=== PATIENT | female | born 1985 | race Hispanic/Latino ===

== ENCOUNTER 2017-03-19 08:00 | Emergency (ER) | payer MEDICAID, OTHER ==
[~2017-03-19 08:00] MED LIST: AMOX-429 PO; LORA2TAB80 PO; METF500T6 PO; PROMETHAZINE; TRAM50TA4 PO
[2017-03-19 08:33] LABS: BASOPHILS % (AUTO) 0.5 % (0.0-5.0); HEMATOCRIT 37.2 % (36-48); LYMPHOCYTES % (AUTO) 23.2 % (21.0-51.0); MEAN CORPUSCULAR HEMOGLOBIN 28.4 pg (27.0-33.0); MEAN CORPUSCULAR HGB CONC 33.4 g/dL (32.0-36.0); MEAN CORPUSCULAR VOLUME 85.2 fL (79-99); MONOCYTES % (AUTO) 5.2 % (3.0-13.0); NEUTROPHILS % (AUTO) 68.1 % (40.0-77.0); PLATELET COUNT (AUTO) 405 K/uL (130-400); RED BLOOD CELL COUNT(AUTO) 4.37 MIL/uL (4.00-5.50); RED CELL DISTRIBUTION WIDTH 13.1 % (11.0-15.5); WHITE BLOOD COUNT (AUTO) 13.7 K/uL (4.8-10.8)
[2017-03-19] MEDS ORDERED: KETOROLAC TROMETHAMINE 30MG/ML ONE (08:44)
[2017-03-19] MEDS ORDERED: ONDANSETRON HCL 4 MG/2 ML VIAL ONE (08:44)
[2017-03-19] MEDS ORDERED: SODIUM CHLORIDE 0.9% 1000ML 1,000 ML IV ONE (08:44)
[2017-03-19 08:49] LABS: APPEARANCE,URINE Turbid (CLEAR); BILIRUBIN,URINE Negative (NEGATIVE); COLOR,URINE Yellow (YELLOW); GLUCOSE, URINE (UA) Negative (NEGATIVE); KETONES,URINE Negative (NEGATIVE); LEUKOCYTE ESTERASE ,URINE Negative (NEGATIVE); NITRATE,URINE Negative (NEGATIVE); OCCULT BLOOD,URINE Negative (NEGATIVE); PH,URINE 5.5 (5.0-8.0); PROTEIN,URINE Negative (NEGATIVE); UROBILINOGEN,URINE 0.2 mg/dL (0.2-1.0)
[2017-03-19 08:51] LABS: HCG,QUAL RESULT NEGATIVE (NEGATIVE)
[2017-03-19 08:55] LABS: BACTERIA,URINE Rare /HPF (None Seen); RBC,URINE 0-1 /HPF (0-1); SQUAMOUS EPITHELIAL CELL,UR Few /LPF (0-2); WBC,URINE 0-1 /HPF (0-1)
[2017-03-19 09:16] LABS: CARBON DIOXIDE 27 mmol/L (21-32); CHLORIDE 100 mmol/L (101-111); CREATININE 0.5 mg/dL (0.5-1.5); GLOMERULAR FILTR. RATE CALC 152 mL/min (>60); GLUCOSE,RANDOM 186 mg/dL (70-105); POTASSIUM 4.2 mmol/L (3.5-5.1); SODIUM SERUM 135 mmol/L (136-145); UREA NITROGEN, BLOOD 10 mg/dL (7-18)
[2017-03-19] MEDS ORDERED: DICYCLOMINE HCL 10 MG/ML 2ML AMP IM ONE (09:17)
[2017-03-19 09:21] LABS: ALANINE AMINOTRANSFERASE 22 U/L (12-78); ALBUMIN 3.3 g/dL (3.5-5.0); ASPARTATE AMINOTRANSFERASE 14 U/L (10-37); BILIRUBIN,DIRECT < 0.1 mg/dL (0.0-0.3); BILIRUBIN,TOTAL 0.2 mg/dL (0.2-1.0); LIPASE 110 U/L (114-286); TOTAL PROTEIN, SERUM 7.3 g/dL (6.0-8.3)
[2017-03-19] MEDS ORDERED: IOPAMIDOL-370 75 ML VIAL IV ONE (09:27)
[2017-03-19] MEDS ORDERED: PROMETHAZINE HCL 25 MG/ML 1ML AMPULE IM ONE (10:48)
== END 2017-03-19 11:33 | disposition home or self-care (01) ==
LOC: EDH 08:00
DX: K52.9 Noninfective gastroenteritis and colitis, unspecified (principal); K21.9 Gastro-esophageal reflux disease without esophagitis
CPT/HCPCS: 36415; 74177; 80048; 80076; 81001; 81025; 83690; 85025; 96361; 96372; 96374; 96375; 99285; J0500; J1885; J2405; J2550; J7030; Q9967

== ENCOUNTER 2017-05-19 14:32 | Emergency (ER) | payer OTHER ==
[2017-05-19 15:18] LABS: BASOPHILS % (AUTO) 0.8 % (0.0-5.0); EOSINOPHILS % (AUTO) 0.3 % (0.0-8.0); HEMATOCRIT 40.5 % (36-48); LYMPHOCYTES % (AUTO) 16.3 % (21.0-51.0); MEAN CORPUSCULAR HEMOGLOBIN 28.5 pg (27.0-33.0); MEAN CORPUSCULAR HGB CONC 33.5 g/dL (32.0-36.0); MEAN CORPUSCULAR VOLUME 85.1 fL (79-99); MONOCYTES % (AUTO) 4.1 % (3.0-13.0); NEUTROPHILS % (AUTO) 78.5 % (40.0-77.0); PLATELET COUNT (AUTO) 467 K/uL (130-400); RED BLOOD CELL COUNT(AUTO) 4.77 MIL/uL (4.00-5.50); RED CELL DISTRIBUTION WIDTH 13.1 % (11.0-15.5); WHITE BLOOD COUNT (AUTO) 13.1 K/uL (4.8-10.8)
[2017-05-19 15:19] LABS: APPEARANCE,URINE Clear (CLEAR); BILIRUBIN,URINE Negative (NEGATIVE); COLOR,URINE Yellow (YELLOW); GLUCOSE, URINE (UA) >=1000 mg/dL (NEGATIVE); KETONES,URINE >=80 mg/dL (NEGATIVE); LEUKOCYTE ESTERASE ,URINE Negative (NEGATIVE); NITRATE,URINE Positive (NEGATIVE); OCCULT BLOOD,URINE Moderate (NEGATIVE); PH,URINE 5.5 (5.0-8.0); PROTEIN,URINE POS 1+ (NEGATIVE); UROBILINOGEN,URINE 0.2 mg/dL (0.2-1.0)
[2017-05-19 15:36] LABS: HCG,QUAL RESULT NEGATIVE (NEGATIVE)
[2017-05-19 15:44] LABS: CREATININE 0.5 mg/dL (0.5-1.5)
[2017-05-19 15:49] LABS: ALBUMIN 3.7 g/dL (3.5-5.0); BILIRUBIN,TOTAL 0.4 mg/dL (0.2-1.0); TOTAL PROTEIN, SERUM 8.4 g/dL (6.0-8.3)
[2017-05-19 15:51] LABS: BACTERIA,URINE Moderate /HPF (None Seen); SQUAMOUS EPITHELIAL CELL,UR Few /HPF (0-2)
[2017-05-19 15:52] LABS: MUCUS,URINE Rare LPF (None Seen)
[2017-05-19 16:09] LABS: AMPHET/METH SCREEN,URINE NEGATIVE (NEGATIVE); BARBITURATE SCREEN, URINE NEGATIVE (NEGATIVE); BENZODIAZEPINES SCREEN,URINE NEGATIVE (NEGATIVE); CANNABINOID SCREEN,URINE NEGATIVE (NEGATIVE); COCAINE SCREEN,URINE NEGATIVE (NEGATIVE); OPIATE SCREEN,URINE POSITIVE (NEGATIVE); PHENCYCLIDINE SCREEN,URINE NEGATIVE (NEGATIVE)
[2017-05-19] MEDS ORDERED: DiphenhydrAMINE HCL 50 MG/ML VIAL ONE (16:19)
[2017-05-19] MEDS ORDERED: KETOROLAC TROMETHAMINE 30MG/ML ONE (16:19)
[2017-05-19] MEDS ORDERED: SODIUM CHLORIDE 0.9% 1000ML 1,000 ML IV ONE (16:19)
[2017-05-19] MEDS ORDERED: ORPHENADRINE CITRATE 30 MG/ML ML ONE (16:19)
[2017-05-19] MEDS ORDERED: LORAZEPAM 2 MG/ML 1 ML VIAL ONE (17:06)
== END 2017-05-19 18:37 | disposition home or self-care (01) ==
LOC: EDH 14:32
DX: R51 Headache (principal); R25.3 Fasciculation; R11.2 Nausea with vomiting, unspecified; K21.9 Gastro-esophageal reflux disease without esophagitis; F41.9 Anxiety disorder, unspecified; Z90.49 Acquired absence of other specified parts of digestive tract; Z98.890 Other specified postprocedural states
CPT/HCPCS: 36415; 80053; 80305; 81001; 81025; 85025; 96361; 96374; 96375; 99285; J1200; J1885; J2060; J2360; J7030

== ENCOUNTER 2017-11-27 18:47 | Emergency (ER) | payer BC, OTHER ==
[~2017-11-27 18:47] MED LIST changes: +METF-444 PO; -METF500T6 PO
[2017-11-27 19:16] LABS: BILIRUBIN,URINE Negative (NEGATIVE); COLOR,URINE Yellow (YELLOW); GLUCOSE, URINE (UA) 500 mg/dL (NEGATIVE); KETONES,URINE >=80 mg/dL (NEGATIVE); LEUKOCYTE ESTERASE ,URINE Negative (NEGATIVE); NITRATE,URINE Negative (NEGATIVE); OCCULT BLOOD,URINE Trace (NEGATIVE); PROTEIN,URINE POS 2+ (NEGATIVE)
[2017-11-27 19:19] LABS: APPEARANCE,URINE SLIGHTLY CLOUDY (CLEAR)
[2017-11-27 19:20] LABS: HCG,QUAL RESULT NEGATIVE (NEGATIVE)
[2017-11-27 19:22] LABS: BASOPHILS % (AUTO) 0.8 % (0.0-5.0); EOSINOPHILS % (AUTO) 0.3 % (0.0-8.0); HEMATOCRIT 41.2 % (36-48); LYMPHOCYTES % (AUTO) 19.8 % (21.0-51.0); MEAN CORPUSCULAR HEMOGLOBIN 29.3 pg (27.0-33.0); MEAN CORPUSCULAR HGB CONC 34.2 g/dL (32.0-36.0); MEAN CORPUSCULAR VOLUME 85.7 fL (79-99); NEUTROPHILS % (AUTO) 75.1 % (40.0-77.0); PLATELET COUNT (AUTO) 455 K/uL (130-400); RED BLOOD CELL COUNT(AUTO) 4.81 MIL/uL (4.00-5.50); WHITE BLOOD COUNT (AUTO) 17.4 K/uL (4.8-10.8)
[2017-11-27 19:31] LABS: BACTERIA,URINE Few /HPF (None Seen); MUCUS,URINE Moderate LPF (None Seen); SQUAMOUS EPITHELIAL CELL,UR Few /HPF (0-2); WBC,URINE 0-1 /HPF (0-1)
[2017-11-27 19:34] LABS: CREATININE 0.5 mg/dL (0.5-1.5); POTASSIUM 3.7 mmol/L (3.5-5.1)
[2017-11-27 19:39] LABS: ALBUMIN 3.7 g/dL (3.5-5.0); BILIRUBIN,TOTAL 0.4 mg/dL (0.2-1.0); TOTAL PROTEIN, SERUM 8.4 g/dL (6.0-8.3)
[2017-11-27] MEDS ORDERED: ONDANSETRON HCL 4 MG/2 ML VIAL ONE (20:04)
[2017-11-27] MEDS ORDERED: SODIUM CHLORIDE 0.9% 1000ML 1,000 ML IV ONE ×2 (20:04→21:50)
[2017-11-27] MEDS ORDERED: DICYCLOMINE HCL 10 MG/ML 2ML AMP IM ONE (20:52)
[2017-11-27] MEDS ORDERED: PROMETHAZINE HCL 25 MG/ML 1ML AMPULE IM ONE (21:44)
[2017-11-27] MEDS ORDERED: MORPHINE SULFATE 4 MG/1ML SYG ONE (21:44)
[2017-11-28] MEDS ORDERED: DICYCLOMINE HCL 10 MG/ML 2ML AMP IM ONE (00:59)
[2017-11-28] MEDS ORDERED: MORPHINE SULFATE 4 MG/1ML SYG ONE (00:59)
[2017-11-28] MEDS ORDERED: AMOXICILLIN/POTASSIUM CLAV 875-125 TABLET PO ONE (01:07)
== END 2017-11-28 01:38 | disposition home or self-care (01) ==
LOC: EDH 18:47
DX: K57.92 Diverticulitis of intestine, part unspecified, without perforation or abscess without bleeding (principal); R11.10 Vomiting, unspecified; E11.9 Type 2 diabetes mellitus without complications; K21.9 Gastro-esophageal reflux disease without esophagitis; K58.9 Irritable bowel syndrome, unspecified; Z90.49 Acquired absence of other specified parts of digestive tract; Z98.890 Other specified postprocedural states
CPT/HCPCS: 36415; 80053; 81001; 81025; 83690; 85025; 93005; 96361; 96372 ×3; 96374; 96375; 96376; 99285; J0500 ×2; J2270 ×2; J2405; J2550; J7030 ×2

== ENCOUNTER 2018-04-19 21:04 | Emergency (ER) | payer BC ==
[2018-04-19 22:13] LABS: APPEARANCE,URINE Cloudy (CLEAR); BILIRUBIN,URINE Negative (NEGATIVE); COLOR,URINE Yellow (YELLOW); GLUCOSE, URINE (UA) Negative (NEGATIVE); KETONES,URINE Negative (NEGATIVE); LEUKOCYTE ESTERASE ,URINE Negative (NEGATIVE); NITRATE,URINE Negative (NEGATIVE); OCCULT BLOOD,URINE Negative (NEGATIVE); PROTEIN,URINE Negative (NEGATIVE); UROBILINOGEN,URINE 0.2 mg/dL (0.2-1.0)
[2018-04-19 22:31] LABS: HCG,QUAL RESULT NEGATIVE (NEGATIVE)
[2018-04-19 22:38] LABS: BACTERIA,URINE Few /HPF (None Seen); RBC,URINE None Seen /HPF (0-1); SQUAMOUS EPITHELIAL CELL,UR Many /HPF (0-2); WBC,URINE None Seen /HPF (0-1)
[2018-04-19] MEDS ORDERED: METOCLOPRAMIDE 10 MG/2 ML VIAL ONE (22:44)
[2018-04-19] MEDS ORDERED: SODIUM CHLORIDE 0.9% 1000ML 2,000 ML IV ONE (22:44)
[2018-04-19] MEDS ORDERED: KETOROLAC TROMETHAMINE 30MG/ML ONE (22:44)
[2018-04-19] MEDS ORDERED: ONDANSETRON HCL 4 MG/2 ML VIAL ONE (22:44)
[2018-04-19 22:48] LABS: BASOPHILS % (AUTO) 0.7 % (0.0-5.0); EOSINOPHILS % (AUTO) 0.9 % (0.0-8.0); HEMATOCRIT 38.7 % (36-48); LYMPHOCYTES % (AUTO) 12.3 % (21.0-51.0); MEAN CORPUSCULAR HEMOGLOBIN 28.1 pg (27.0-33.0); MEAN CORPUSCULAR HGB CONC 32.8 g/dL (32.0-36.0); MEAN CORPUSCULAR VOLUME 85.7 fL (79-99); MONOCYTES % (AUTO) 5.3 % (3.0-13.0); NEUTROPHILS % (AUTO) 80.8 % (40.0-77.0); PLATELET COUNT (AUTO) 402 K/uL (130-400); RED BLOOD CELL COUNT(AUTO) 4.52 MIL/uL (4.00-5.50); RED CELL DISTRIBUTION WIDTH 12.9 % (11.0-15.5); WHITE BLOOD COUNT (AUTO) 14.3 K/uL (4.8-10.8)
[2018-04-19 22:56] LABS: CREATININE 0.6 mg/dL (0.5-1.5); POTASSIUM 4.8 mmol/L (3.5-5.1)
[2018-04-19 23:01] LABS: ALBUMIN 3.5 g/dL (3.5-5.0); BILIRUBIN,TOTAL 0.3 mg/dL (0.2-1.0); TOTAL PROTEIN, SERUM 7.6 g/dL (6.0-8.3)
[2018-04-19] MEDS ORDERED: DiphenhydrAMINE HCL 50 MG/ML VIAL ONE (23:09)
[2018-04-20 00:32] LABS: BASOPHILS % (AUTO) 0.3 % (0.0-5.0); HEMATOCRIT 34.6 % (36-48); LYMPHOCYTES % (AUTO) 15.3 % (21.0-51.0); MEAN CORPUSCULAR HEMOGLOBIN 28.2 pg (27.0-33.0); MEAN CORPUSCULAR HGB CONC 32.8 g/dL (32.0-36.0); MEAN CORPUSCULAR VOLUME 85.9 fL (79-99); NEUTROPHILS % (AUTO) 77.4 % (40.0-77.0); PLATELET COUNT (AUTO) 379 K/uL (130-400); RED BLOOD CELL COUNT(AUTO) 4.02 MIL/uL (4.00-5.50); RED CELL DISTRIBUTION WIDTH 13.2 % (11.0-15.5)
== END 2018-04-20 01:16 | disposition home or self-care (01) ==
LOC: EDH 21:04
DX: M86.9 Osteomyelitis, unspecified (principal); M54.5 Low back pain; E11.9 Type 2 diabetes mellitus without complications; K21.9 Gastro-esophageal reflux disease without esophagitis; Z90.49 Acquired absence of other specified parts of digestive tract; Z98.890 Other specified postprocedural states
CPT/HCPCS: 36415 ×2; 80053; 81001; 81025; 83690; 85025 ×2; 96361; 96374; 96375; 99285; J1200; J1885; J2405; J2765; J7030

== ENCOUNTER 2019-02-21 21:47 | Emergency (ER) | payer BC ==
[2019-02-21] MEDS ORDERED: LIDOCAINE 5% TOPICAL PATCH TP ONE (22:34)
[2019-02-21] MEDS ORDERED: KETOROLAC TROMETHAMINE 60 MG/2 ML VIAL ONE (22:34)
== END 2019-02-21 23:34 | disposition home or self-care (01) ==
LOC: EDH 21:47
DX: G57.11 Meralgia paresthetica, right lower limb (principal); K21.9 Gastro-esophageal reflux disease without esophagitis; E11.9 Type 2 diabetes mellitus without complications; Z90.49 Acquired absence of other specified parts of digestive tract; Z98.890 Other specified postprocedural states
CPT/HCPCS: 93971; 96372; 99284; J1885

== ENCOUNTER 2024-02-28 01:00 | Emergency (ER) | payer BC ==
[~2024-02-28] VITALS: Ht 157.5 cm; Wt 77.6 kg
[2024-02-28 01:01] VITALS: TEMP 97.7
[2024-02-28] MEDS: LACTATED RINGERS 1000ML 1,000 ML IV ONE (01:25)
[2024-02-28] MEDS: morPHINE 4 MG SYG IVP ONE ×2 (01:27→02:13)
[2024-02-28] MEDS: ondanSETRON 4MG INJ IVP ONE (01:27)
[2024-02-28] MEDS: PANTOPrazole 40 MG/VIAL IVP ONE (01:28)
[2024-02-28 01:49] LABS: BASOPHILS # (AUTO) 0.04 K/uL (0.00-0.20); BASOPHILS % (AUTO) 0.4 % (0.0-5.0); EOSINOPHILS # (AUTO) 0.11 K/uL (0.00-0.70); EOSINOPHILS % (AUTO) 1.1 % (0.0-8.0); HEMATOCRIT 30.6 % (36-48); IMMATURE GRANULOCYTE ABSOLUTE 0.03 K/uL (0-1); LYMPHOCYTES # (AUTO) 3.6 K/uL (1.0-4.8); MEAN CORPUSCULAR HEMOGLOBIN 28.5 pg (27.0-33.0); MEAN CORPUSCULAR HGB CONC 33.7 g/dL (32.0-36.0); MEAN CORPUSCULAR VOLUME 84.8 fL (79-99); MONOCYTES # (AUTO) 0.7 K/uL (0.1-1.0); MONOCYTES % (AUTO) 6.9 % (3.0-13.0); NEUTROPHILS # (AUTO) 5.2 K/uL (1.8-7.7); NEUTROPHILS % (AUTO) 54.3 % (40.0-77.0); PLATELET COUNT (AUTO) 330 K/uL (130-400); RED BLOOD CELL COUNT(AUTO) 3.61 MIL/uL (4.00-5.50); RED CELL DISTRIBUTION WIDTH 13.5 % (11.0-15.5); WHITE BLOOD COUNT (AUTO) 9.6 K/uL (4.8-10.8)
[2024-02-28 01:51] LABS: APPEARANCE,URINE CLEAR (CLEAR); BILIRUBIN,URINE NEGATIVE (NEGATIVE); COLOR,URINE COLORLESS (YELLOW); GLUCOSE, URINE (UA) NEGATIVE (NEGATIVE); KETONES,URINE NEGATIVE (NEGATIVE); LEUKOCYTE ESTERASE ,URINE NEGATIVE Leu/uL (NEGATIVE); NITRATE,URINE NEGATIVE (NEGATIVE); OCCULT BLOOD,URINE NEGATIVE (NEGATIVE); PROTEIN,URINE NEGATIVE (NEGATIVE); UROBILINOGEN,URINE 0.2 mg/dL (0.2-1.0)
[2024-02-28 01:53] LABS: ADD UA MICROSCOPIC NO
[2024-02-28 01:54] LABS: HCG,QUALITATIVE URINE NEGATIVE (NEGATIVE)
[2024-02-28 01:55] LABS: CREATININE 0.5 mg/dL (0.5-1.0); POTASSIUM 3.9 mmol/L (3.5-5.1)
[2024-02-28 01:59] LABS: ALBUMIN 3.2 g/dL (3.5-5.0); BILIRUBIN,TOTAL 0.2 mg/dL (0.2-1.0); TOTAL PROTEIN, SERUM 6.5 g/dL (6.0-8.3)
[2024-02-28] MEDS ORDERED: IOHEXOL-350 75 ML VIAL IV ONE (02:23)
--- NOTE | 2024-02-28 03:46 | ERN ---
ED Note History of Present Illness Stated Complaint: C/O ABD PAIN WITH NAUSEA, ONSET LAST NIGHT Chief Complaint: Abdominal Pain Time Seen by MD: 01:16 Allergies: Coded Allergies: No Known Drug Allergies (Verified Allergy, Unknown, 02/16/16) Home Meds Active Scripts Amoxicillin/Potassium Clav (Augmentin 875-125 Tablet) 1 Each Tablet, 1 EACH PO BID, #15 TAB Prov:WILFREDO ZIMMERMAN MD 04/02/16 Reported Medications [Promethazine] No Conflict Check 04/01/16 Metformin HCl (Metformin HCl) 500 Mg Tablet, 500 MG PO DAILY, TAB 04/01/16 Tramadol Hcl (Tramadol HCl) 50 Mg Tablet, 50 MG PO BID PRN for PAIN LEVEL 5 TO 10, TAB 04/01/16 Lorazepam (Ativan) 2 Mg Tablet, 2 MG PO TID PRN for ANXIETY/AGITATION, TAB 04/01/16 Past Medical History Dictation 38-year-old female with past medical history small-bowel obstruction, appendectomy, sections presents. Prior to. She will with sudden onset suprapubic abdominal pain. Patient denies nausea, vomiting, diaphoresis, syncope, presyncope, productive cough, change in bladder or bowel function Past Medical History: Diverticulosis, IBS, Other Additional Past Medical Hx: HX OF BOWEL OBSTRUCTION Surgical History: Appendectomy, Tonsillectomy, LMP: Feb 17, 2024 Review of System Dictation See HPI Initial Vital Sign VS Vital Signs Date Time Temp Pulse Resp B/P (MAP) Pulse Ox O2 Delivery O2 Flow Rate FiO2 02/28/24 01:01 97.7 134 20 159/131 98 Room Air 02/28/24 01:20 0 21 Physical Exam Dictation Elevated BMI, uncomfortable appearing, abdomen is soft, nontender, non peritoneal, regular heart rate and rhythm, no murmurs rubs or gallops, lungs clear to auscultation, symmetric bilateral breath sounds Results (Laboratory/Radiology) Laboratory/Radiology Laboratory Tests Test 02/28/24 01:34 White Blood Count 9.6 K/uL (4.8-10.8) Red Blood Count 3.61 MIL/uL (4.00-5.50) L Hemoglobin 10.3 g/dL (12.0-16.0) L Hematocrit 30.6 % (36-48) L Mean Corpuscular Volume 84.8 fL (79-99) Mean Corpuscular Hemoglobin 28.5 pg (27.0-33.0) Mean Corpuscular Hemoglobin Concent 33.7 g/dL (32.0-36.0) Red Cell Distribution Width 13.5 % (11.0-15.5) Platelet Count 330 K/uL (130-400) Mean Platelet Volume 8.4 fL (7.5-10.5) Immature Granulocyte % (Auto) 0.3 % (0-1) Neutrophils (%) (Auto) 54.3 % (40.0-77.0) Lymphocytes (%) (Auto) 37.0 % (21.0-51.0) Monocytes (%) (Auto) 6.9 % (3.0-13.0) Eosinophils (%) (Auto) 1.1 % (0.0-8.0) Basophils (%) (Auto) 0.4 % (0.0-5.0) Neutrophils # (Auto) 5.2 K/uL (1.8-7.7) Lymphocytes # (Auto) 3.6 K/uL (1.0-4.8) Monocytes # (Auto) 0.7 K/uL (0.1-1.0) Eosinophils # (Auto) 0.11 K/uL (0.00-0.70) Basophils # (Auto) 0.04 K/uL (0.00-0.20) Absolute Immature Granulocyte (auto 0.03 K/uL (0-1) Nucleated Red Blood Cells 0.0 % (0.0-0.19) Urine Color COLORLESS (YELLOW) Urine Appearance CLEAR (CLEAR) Urine pH 6.0 (5.0-8.0) Urine Specific [place] 1.005 (1.001-1.031) Urine Protein NEGATIVE mg/dL (NEGATIVE) Urine Glucose (UA) NEGATIVE mg/dL (NEGATIVE) Urine Ketones NEGATIVE mg/dL (NEGATIVE) Urine Occult Blood NEGATIVE (NEGATIVE) Urine Nitrate NEGATIVE (NEGATIVE) Urine Bilirubin NEGATIVE mg/dL (NEGATIVE) Urine Urobilinogen 0.2 mg/dL (0.2-1.0) Urine Leukocyte Esterase NEGATIVE Matti/uL Urine HCG, Qualitative NEGATIVE (NEGATIVE) Sodium Level 136 mmol/L (136-145) Potassium Level 3.9 mmol/L (3.5-5.1) Chloride Level 102 mmol/L (101-111) Carbon Dioxide Level 26 mmol/L (21-32) Blood Urea Nitrogen 14 mg/dL (7-18) Creatinine 0.5 mg/dL (0.5-1.0) Glomerular Filtration Rate Calc 123 mL/min (>90) Random Glucose 140 mg/dL (70-105) H Total Calcium 8.9 mg/dL (8.5-10.1) Total Bilirubin 0.2 mg/dL (0.2-1.0) Aspartate Amino Transf (AST/SGOT) 10 U/L (10-37) Alanine Aminotransferase (ALT/SGPT) 13 U/L (12-78) Alkaline Phosphatase 59 U/L (50-136) Total Protein 6.5 g/dL (6.0-8.3) Albumin 3.2 g/dL (3.5-5.0) L Lipase 221 U/L (16-77) H ED Course ED Course Orders Procedure Category Date Status Time Cbc With Differential LAB 02/28/24 Complete 01:16 Comprehensive LAB 02/28/24 Complete Metabolic Panel 01:16 ,Urine Test LAB 02/28/24 Complete 01:16 Urinalysis Profile LAB 02/28/24 Complete 01:16 Ct Abdomen/Pelvis CT 02/28/24 Taken W/Contrast 01:16 Lactated Ringers PHA 02/28/24 Complete 1000ml (Lactated 01:30 Morphine 4mg Syg PHA 02/28/24 Complete (Morphine 4mg Syg) 01:30 Ondansetron 4mg Inj PHA 02/28/24 Complete (Zofran 4mg Inj) 01:30 Pantoprazole 40mg Inj PHA 02/28/24 Complete (Protonix 40mg Inj 01:30 Lipase LAB 02/28/24 Complete 01:16 Morphine 4mg Syg PHA 02/28/24 Complete (Morphine 4mg Syg) 02:30 Iohexol (Omnipaque) PHA 02/28/24 Complete 02:23 Mineral Oil (Mineral PHA 02/28/24 In Process Oil) 04:00 Lactulose 20 Gm/30 Ml PHA 02/28/24 In Process Udcup (Constulose 04:00 Polyethylene Glycol PHA 02/28/24 In Process 3350 (Miralax 3350 1 04:00 Morphine 4mg Syg PHA 02/28/24 In Process (Morphine 4mg Syg) 04:00 Current Medications Medications (Trade) Dose Ordered Sig/Scar Route PRN Reason Start Time Stop Time Status Last Admin Dose Admin Iohexol (Omnipaque) 75 ml STK-MED ONCE IV 02/28/24 02:23 02/28/24 02:23 DC Lactated Ringer's 1,000 ml @ 0 mls/hr ONCE ONCE IV 02/28/24 01:30 02/28/24 01:31 DC 02/28/24 01:25 Lactulose (Constulose 20gm/ 30ml Udcup) 20 gm ONCE ONCE PO 02/28/24 04:00 02/28/24 04:01 Mineral Oil (Mineral Oil) 45 ml ONCE PO 02/28/24 04:00 03/29/24 03:59 Morphine Sulfate (morPHINE 4MG SYG) 4 mg ONCE ONCE IVP 02/28/24 01:30 02/28/24 01:31 DC 02/28/24 01:27 Morphine Sulfate (morPHINE 4MG SYG) 4 mg ONCE ONCE IVP 02/28/24 02:30 02/28/24 02:31 DC 02/28/24 02:13 Morphine Sulfate (morPHINE 4MG SYG) 4 mg Q4H PRN IVP SEVERE PAIN (7-10) 02/28/24 04:00 03/06/24 03:59 Ondansetron HCl (zoFRAN 4MG INJ) 4 mg ONCE ONCE IVP 02/28/24 01:30 02/28/24 01:31 DC 02/28/24 01:27 Pantoprazole Sodium (PROTonix 40MG INJ) 40 mg ONCE ONCE IVP 02/28/24 01:30 02/28/24 01:31 DC 02/28/24 01:28 Polyethylene Glycol (MIRalax 3350 17 GM POWD.PACK) 17 gm ONCE ONCE PO 02/28/24 04:00 02/28/24 04:01 Vital Signs Date Time Temp Pulse Resp B/P (MAP) Pulse Ox O2 Delivery O2 Flow Rate FiO2 02/28/24 01:20 117 20 130/70 98 Room Air* 0 21 02/28/24 01:01 97.7 134 20 159/131 98 Room Air Medical Decision Making MDM ddx: Acute pancreatitis versus gastritis versus small-bowel obstruction versus acute cholecystitis versus adhesions versus constipation Lipase within normal limits. Doubt acute pancreatitis. UA negative for infection. Doubt UTI. White blood cell count within normal limits. Doubt bacterial infection. Glucose within normal limits. Doubt DKA. CT abdomen and pelvis shows no acute intra-abdominal pathology. Doubt small-bowel obstruction. Patient has history of appendectomy. Doubt appendicitis Upon re-evaluation, patient's symptoms improved with morphine. Patient has follow by GI doctor for abdominal pain that is unexplained. Patient will follow up with GI doctor. Return precautions given. Invited and answered all questions prior to discharge. Patient is tolerating p.o. and abdomen is benign prior to discharge. Patient agreeable to plan. DX & DISP Disposition: Discharge Departure Impression: Primary Impression: Abdominal pain of unknown etiology Condition: Stable Scripts Lactulose (Lactulose) 10 Gram Packet 1 PACKET PO DAILY for 7 Days, #7 PACKET 0 Refills Prov: VIN ELLIOTT DO 02/28/24 Dicyclomine HCl (Bentyl) 20 Mg Tab 1 TAB PO QID for irritable bowel symptoms for 30 Days, #120 TAB 0 Refills Prov: VIN ELLIOTT DO 02/28/24 Additional Instructions: Please return to the emergency department immediately if you can not eat or drink, if continuous nausea and vomiting,. Passing gas have inability to have a bowel movement, or if pain becomes unbearable. Please follow up with GI doctor at next available appointment. Please follow up with primary care physician at next available appointment. Referrals: SELF,REFERRAL (PCP) Time of Disposition: 04:05 VIN ELLIOTT DO Feb 28, 2024 03:46
[2024-02-28] MEDS ORDERED: MINERAL OIL 30 ML UDCUP PO SCH (04:00)
[2024-02-28] MEDS: morPHINE 4 MG SYG IVP PRN (04:01)
[2024-02-28] MEDS: LACTULOSE 20 GM/30 ML UDCUP PO ONE (04:02)
[2024-02-28] MEDS: polyETHYLene GLYCol 3350 17 GM POWD.PACK PO ONE (04:04)
[2024-02-28] MEDS ORDERED: LACT10PA5 PO (04:04)
[2024-02-28] MEDS ORDERED: DICY20TA2 PO (04:04)
[2024-02-28] MEDS: MINERAL OIL 30 ML UDCUP PO ONE (04:08)
[2024-02-28 04:38] VITALS: BP 113/68; PULSE 76; RESP 18; O2SAT 96
--- NOTE | 2024-02-28 08:43 | HMCIMG ---
Exam Type: CT ABDOMEN/PELVIS W/CONTRAST Clinical Information: Abdominal Pain Comparison: None Contrast: 100 cc's Isovue 370 IV, no complications or adverse reactions CT Dose Index (CTDI): 31.60 mGy Dose Length Product (DLP): 1740.80 total mGy-cm Findings: No evidence of nephro or ureterolithiasis is found. No hydronephrosis or ureteral dilatation is seen. The lung bases are clear. The stomach is unremarkable. It shows no wall thickening. No gross ulceration is seen. It is not overly distended. There are no surrounding inflammatory changes. No wall lesions are identified to suggest cancer. The spleen is unremarkable. It is not enlarged. The pancreas shows normal anatomy. It is not fatty replaced. It shows no lesions. The pancreatic duct is not dilated. The gallbladder is unremarkable. It shows no cholelithiasis. The gallbladder wall is normal in thickness. There is no pericholecystic fluid. The is no acute or chronic inflammation noted. The adrenal glands are unremarkable. There is no enlargement. No lesions are noted. The liver is unremarkable. It shows no focal masses. The appendix is unremarkable. It shows no evidence of inflammation. No appendicolith is seen. The small bowel is unremarkable. There is no evidence of dilatation to suggest obstruction. No evidence of adynamic ileus is seen. There is no small bowel wall thickening to suggest enteritis. The colon is unremarkable. The urinary bladder is unremarkable. There is no wall thickening to suggest tumor or inflammation. There are no intraluminal calculi. There are no diverticula. There is no evidence of chronic bladder outlet obstruction. There is no evidence of urinary bladder distention to suggest urinary retention. The other pelvic structures are unremarkable. The bony and vascular structures are unremarkable for the patient's age. IMPRESSION: NEGATIVE CT SCAN OF THE ABDOMEN AND PELVIS WITH ORAL AND IV CONTRAST. This study was performed using dose reduction techniques to include automated exposure control and/or adjustment of the mA and/or kV according to patient size.
[2024-02-28] MEDS ORDERED: AMOX-427 PO (22:10)
[2024-04-23] MEDS ORDERED: FOLI1 PO (13:00)
[2024-04-23] MEDS ORDERED: SERT-440 PO (13:00)
[2024-04-23] MEDS ORDERED: ONDA-104 PO (13:10)
[2024-04-23] MEDS ORDERED: PANT40TA54 PO (13:10)
[2024-04-23] MEDS ORDERED: AMOX-426 PO (13:10)
[2024-04-23] MEDS ORDERED: METR-172 PO (13:10)
[2024-05-17] MEDS ORDERED: FERR324T4 PO (09:42)
== END 2024-02-28 04:43 | disposition home or self-care (01) ==
LOC: EDH 01:00
DX: R10.84 Generalized abdominal pain (principal); R10.2 Pelvic and perineal pain; Z79.84 Long term (current) use of oral hypoglycemic drugs; Z90.49 Acquired absence of other specified parts of digestive tract; Z90.89 Acquired absence of other organs
CPT/HCPCS: 99284 ×2; 82550; 84484; 80053 ×2; 80305; 84702; 83690 ×2; 85025 ×2; 81003; 81001; 81025 ×2; 36415 ×2; 74177 ×2; 96374 ×2; 96361 ×2; 96375 ×2; 96376 ×2; 93005; J7120; J7030; J2405 ×3; J2270 ×6; J2470 ×2; Q9967 ×2; 96365

== ENCOUNTER 2024-02-28 16:31 | Emergency (ER) | payer BC ==
[~2024-02-28] VITALS: Ht 157.5 cm; Wt 77.6 kg
[2024-02-28] MEDS: 0.9%NACL 1000ML 1,000 ML IV ONE (10:00)
[~2024-02-28 16:31] MED LIST changes: +DICY20TA2 PO; +LACT10PA5 PO
[2024-02-28 17:32] LABS: BASOPHILS # (AUTO) 0.04 K/uL (0.00-0.20); BASOPHILS % (AUTO) 0.4 % (0.0-5.0); EOSINOPHILS # (AUTO) 0.06 K/uL (0.00-0.70); EOSINOPHILS % (AUTO) 0.6 % (0.0-8.0); HEMATOCRIT 32.4 % (36-48); IMMATURE GRANULOCYTE ABSOLUTE 0.03 K/uL (0-1); LYMPHOCYTES # (AUTO) 2.8 K/uL (1.0-4.8); LYMPHOCYTES % (AUTO) 26.6 % (21.0-51.0); MEAN CORPUSCULAR HEMOGLOBIN 27.8 pg (27.0-33.0); MEAN CORPUSCULAR HGB CONC 32.7 g/dL (32.0-36.0); MONOCYTES # (AUTO) 0.6 K/uL (0.1-1.0); MONOCYTES % (AUTO) 6.1 % (3.0-13.0); NEUTROPHILS # (AUTO) 6.8 K/uL (1.8-7.7); PLATELET COUNT (AUTO) 380 K/uL (130-400); RED BLOOD CELL COUNT(AUTO) 3.81 MIL/uL (4.00-5.50); RED CELL DISTRIBUTION WIDTH 13.9 % (11.0-15.5); WHITE BLOOD COUNT (AUTO) 10.4 K/uL (4.8-10.8)
[2024-02-28 17:51] LABS: CREATININE 0.6 mg/dL (0.5-1.0)
--- NOTE | 2024-02-28 17:58 | ERN ---
General Chief Complaint: Abdominal Pain Stated Complaint: SEVERE ABD PAIN,N/V Time Seen by MD: 16:35 Source: patient History of Present Illness Initial Comments Patient is a 38-year-old female coming in to be evaluated for nauseousness and vomiting. Per patient she was seen earlier and was sent home she states he felt better but now she started to feel bad again. She states she has a history of diverticulitis and bowel Allergies: Coded Allergies: No Known Drug Allergies (Verified Allergy, Unknown, 02/16/16) Home Meds Active Scripts Lactulose (Lactulose) 10 Gram Packet, 1 PACKET PO DAILY for 7 Days, #7 PACKET 0 Refills Prov:VIN ELLIOTT DO 02/28/24 Dicyclomine HCl (Bentyl) 20 Mg Tab, 1 TAB PO QID for irritable bowel symptoms for 30 Days, #120 TAB 0 Refills Prov:VIN ELLIOTT DO 02/28/24 Amoxicillin/Potassium Clav (Augmentin 875-125 Tablet) 1 Each Tablet, 1 EACH PO BID, #15 TAB Prov:WILFREDO ZIMMERMAN MD 04/02/16 Reported Medications [Promethazine] No Conflict Check 04/01/16 Metformin HCl (Metformin HCl) 500 Mg Tablet, 500 MG PO DAILY, TAB 04/01/16 Tramadol Hcl (Tramadol HCl) 50 Mg Tablet, 50 MG PO BID PRN for PAIN LEVEL 5 TO 10, TAB 04/01/16 Lorazepam (Ativan) 2 Mg Tablet, 2 MG PO TID PRN for ANXIETY/AGITATION, TAB 04/01/16 Past Medical History Past Medical History: Diverticulosis, Other Medical History Other: IBS, DUMPING SYNDROME Past Surgical History: Appendectomy, ROS Dictation CONSTITUTIONAL: No chills, no fever, no weakness, no diaphoresis, no malaise. HEAD/FACE: No signs of trauma. EENT: No eye pain, no blurred vision, no tearing, no double vision, no ear pain, no ear discharge, no nose pain, no nasal congestion, no throat pain, no throat swelling, no mouth pain. RESPIRATORY: No cough, no orthopnea, no SOB, no stridor, no wheezing. CARDIOVASCULAR: No chest pain, no edema, no palpitations, no syncope. GASTROINTESTINAL/ABDOMINAL: No abdominal pain, no constipation, no diarrhea, nausea, vomiting. GENITOURINARY: No abnormal discharge, no dysuria, no frequent urination, no hematuria. No complaints of pain in the genitals. MUSCULOSKELETAL: No back pain, no gout, no joint pain, no joint swelling, no muscle pain, no muscle stiffness, no neck pain. INTEGUMENTARY: No change in color, no change in hair/nails, no dryness, no lesion, no lumps, no rash. NEUROLOGICAL/PSYCH: No anxiety, not depressed, no emotional problem, no headache, no numbness, no pre-existing deficit, no history of seizures, no tremors, no weakness. HEMATOLOGIC/LYMPHATIC: Not anemic, no history of blood clots, no apparent bleeding, no bruising, glands not swollen. All Systems Negative, Except as Noted. Physical Exam Physical Exam Dictation VITAL SIGNS: Reviewed. GENERAL APPEARANCE: Alert, oriented x3, no acute distress, obese. HEAD AND FACE: Non-traumatic. EYES: PERRL, pink conjunctivas, eyelid no trauma, anterior chamber clear. EARS: Pinnas intact and no signs of trauma or erythema. Ear canals clear and no discharge. TMs no erythema. NOSE: No discharge, no bleeding. OROPHARYNX: Mouth normal, teeth no caries, tongue pink. Pharynx clear, no erythema. Tonsils no exudates, no abscesses noted. Mucous membrane moist. NECK: Supple, non-tender, no thyromegaly, no masses, no JVD, no bruits. BREAST: Deferred. CHEST: No tenderness, no crepitus, no paradoxical movement, no retractions. LUNGS: Clear, well-ventilated, symmetric, no rales, no wheezing, no rhonchi, no stridor, good breath sounds bilaterally. HEART: Regular rate, regular rhythm, no murmur, no gallops. VASCULAR: No peripheral edema. ABDOMEN: Soft, positive bowel sounds, nondistended, no guarding, nontender, no rebound, no masses no hepatomegaly, no splenomegaly, no Silva's sign, no hernias. RECTAL: Deferred. GENITAL: Deferred. NEUROLOGICAL: Normal speech, gross motor function intact, gross sensory function intact. MUSCULOSKELETAL: Neck nontender, full range of motion, back nontender, full range of motion. EXTREMITIES: Nontender, full range of motion. SKIN: Color pink, dry, no turgor, no rash, no lacerations, no abrasions, no contusions. LYMPHATICS: Deferred. Results Laboratory and Microbiology Lab and Micro Result Laboratory Tests Test 02/28/24 17:18 White Blood Count 10.4 K/uL (4.8-10.8) Red Blood Count 3.81 MIL/uL (4.00-5.50) L Hemoglobin 10.6 g/dL (12.0-16.0) L Hematocrit 32.4 % (36-48) L Mean Corpuscular Volume 85.0 fL (79-99) Mean Corpuscular Hemoglobin 27.8 pg (27.0-33.0) Mean Corpuscular Hemoglobin Concent 32.7 g/dL (32.0-36.0) Red Cell Distribution Width 13.9 % (11.0-15.5) Platelet Count 380 K/uL (130-400) Mean Platelet Volume 8.4 fL (7.5-10.5) Immature Granulocyte % (Auto) 0.3 % (0-1) Neutrophils (%) (Auto) 66.0 % (40.0-77.0) Lymphocytes (%) (Auto) 26.6 % (21.0-51.0) Monocytes (%) (Auto) 6.1 % (3.0-13.0) Eosinophils (%) (Auto) 0.6 % (0.0-8.0) Basophils (%) (Auto) 0.4 % (0.0-5.0) Neutrophils # (Auto) 6.8 K/uL (1.8-7.7) Lymphocytes # (Auto) 2.8 K/uL (1.0-4.8) Monocytes # (Auto) 0.6 K/uL (0.1-1.0) Eosinophils # (Auto) 0.06 K/uL (0.00-0.70) Basophils # (Auto) 0.04 K/uL (0.00-0.20) Absolute Immature Granulocyte (auto 0.03 K/uL (0-1) Nucleated Red Blood Cells 0.0 % (0.0-0.19) Sodium Level 140 mmol/L (136-145) Potassium Level 4.0 mmol/L (3.5-5.1) Chloride Level 106 mmol/L (101-111) Carbon Dioxide Level 25 mmol/L (21-32) Blood Urea Nitrogen 9 mg/dL (7-18) Creatinine 0.6 mg/dL (0.5-1.0) Glomerular Filtration Rate Calc 118 mL/min (>90) Random Glucose 140 mg/dL (70-105) H Total Calcium 8.9 mg/dL (8.5-10.1) Total Bilirubin 0.3 mg/dL (0.2-1.0) # Aspartate Amino Transf (AST/SGOT) 12 U/L (10-37) Alanine Aminotransferase (ALT/SGPT) 15 U/L (12-78) Alkaline Phosphatase 53 U/L (50-136) Total Creatine Kinase 41 U/L (21-232) # Troponin I High Sensitivity < 4 ng/L (4-50) L Total Protein 6.9 g/dL (6.0-8.3) Albumin 3.4 g/dL (3.5-5.0) L Lipase 78 U/L (16-77) H Human Chorionic Gonadotropin, Quant 0 mIU/mL (0-5) MDM MDM: Differential diagnosis: Gastroenteritis, nausea and vomiting, Rationale: Tests considered and ordered secondary to shared decision making include: Previous outside records reviewed: Old ER visits. Risk of complication and/or morbidity or mortality of patient management: None Medications-Per medication reconciliation Need for hospitalization: Patient does not meet criteria for hospitalization. Need for emergency major/minor surgery: No There are no social concerns with this patient. Prescription drug management Prescriptions will include symptomatic care Patient's prior external medical records from other ER visits were reviewed by me as indicated. Prior testing and results from previous visits were reviewed. Prior tests were taken into account with medical decision making and resource utilization, independent historian/historians were used to obtain complete medical history. I independently interpreted the test that were performed, results were reviewed by me and considered findings on radiology if ordered. Medical management and examination interpretation discussions were had by ak wi th other qualified healthcare professionals as indicated for the patient's care. ED Course Orders Procedure Category Date Status Time Cbc With Differential LAB 02/28/24 Complete 17:10 Comprehensive LAB 02/28/24 Complete Metabolic Panel 17:10 Troponin I High LAB 02/28/24 Complete Sensitivity 17:10 Hcg,Quantitative LAB 02/28/24 Complete 17:10 ,Urine Test LAB 02/28/24 Logged 17:10 Urinalysis Profile LAB 02/28/24 Logged 17:10 12 Lead Ekg Tracing- EKG 02/28/24 Logged Technical 17:10 0.9%Nacl 1000ml (Ns PHA 02/28/24 Complete 1000ml) 17:30 Ondansetron 4mg Inj PHA 02/28/24 Complete (Zofran 4mg Inj) 17:30 Pantoprazole 40mg Inj PHA 02/28/24 Complete (Protonix 40mg Inj 17:30 Creatine Kinase, Total LAB 02/28/24 Complete 17:10 Lipase LAB 02/28/24 Complete 17:10 Drug Screen Urine LAB 02/28/24 Logged 17:10 Current Medications Medications (Trade) Dose Ordered Sig/Scar Route PRN Reason Start Time Stop Time Status Last Admin Dose Admin Ondansetron HCl (zoFRAN 4MG INJ) 4 mg ONCE ONCE IVP 02/28/24 17:30 02/28/24 17:31 DC Pantoprazole Sodium (PROTonix 40MG INJ) 40 mg ONCE ONCE IVP 02/28/24 17:30 02/28/24 17:31 DC Sodium Chloride 1,000 ml @ 0 mls/hr ONCE ONCE IV 02/28/24 17:30 02/28/24 17:31 DC Vital Signs Date Time Temp Pulse Resp B/P (MAP) Pulse Ox O2 Delivery O2 Flow Rate FiO2 02/28/24 18:50 98.4 99 20 118/69 98 Room Air* 0 21 02/28/24 17:07 98.6 108 16 120/77 98 Room Air DX & DISP Disposition: Other(Comment) (Patient care transitioned to Dr. Núñez) Departure Condition: Stable Referrals: SELF,REFERRAL (PCP) LUCIANA BYERS MD Feb 28, 2024 17:58
[2024-02-28 18:10] LABS: ALBUMIN 3.4 g/dL (3.5-5.0); BILIRUBIN,TOTAL 0.3 mg/dL (0.2-1.0); TOTAL PROTEIN, SERUM 6.9 g/dL (6.0-8.3)
[2024-02-28] MEDS: PANTOPrazole 40 MG/VIAL IVP ONE (20:04)
[2024-02-28] MEDS: ondanSETRON 4MG INJ IVP ONE ×2 (20:04→20:21)
[2024-02-28 20:12] VITALS: BP 120/75; PULSE 108; RESP 18; TEMP 98.6; O2SAT 98
[2024-02-28 20:14] LABS: APPEARANCE,URINE CLEAR (CLEAR); BILIRUBIN,URINE NEGATIVE (NEGATIVE); COLOR,URINE LIGHT-YELLOW (YELLOW); GLUCOSE, URINE (UA) NEGATIVE (NEGATIVE); KETONES,URINE NEGATIVE (NEGATIVE); LEUKOCYTE ESTERASE ,URINE NEGATIVE Leu/uL (NEGATIVE); NITRATE,URINE NEGATIVE (NEGATIVE); OCCULT BLOOD,URINE NEGATIVE (NEGATIVE); PH,URINE 5.5 (5.0-8.0); PROTEIN,URINE NEGATIVE (NEGATIVE); UROBILINOGEN,URINE 0.2 mg/dL (0.2-1.0)
[2024-02-28 20:17] LABS: ADD UA MICROSCOPIC YES
[2024-02-28 20:19] LABS: HCG,QUALITATIVE URINE NEGATIVE (NEGATIVE)
[2024-02-28 20:21] LABS: BACTERIA,URINE RARE /HPF (None Seen); MUCUS,URINE FEW LPF (None Seen); RBC,URINE 0-1 /HPF (0-1); SQUAMOUS EPITHELIAL CELL,UR RARE /HPF (0-2); WBC,URINE 0-1 /HPF (0-1)
[2024-02-28] MEDS: morPHINE 4 MG SYG IVP PRN (20:21)
[2024-02-28 20:22] LABS: AMPHET/METH SCREEN,URINE NEGATIVE (NEGATIVE); BARBITURATE SCREEN, URINE NEGATIVE (NEGATIVE); BENZODIAZEPINES SCREEN,URINE POSITIVE (NEGATIVE); CANNABINOID SCREEN,URINE NEGATIVE (NEGATIVE); COCAINE SCREEN,URINE NEGATIVE (NEGATIVE); OPIATE SCREEN,URINE POSITIVE (NEGATIVE); PHENCYCLIDINE SCREEN,URINE NEGATIVE (NEGATIVE)
[2024-02-28] MEDS ORDERED: IOHEXOL 350 MG/ML 100ML INFUS..BTL IV ONE (20:57)
--- NOTE | 2024-02-28 21:35 | HMCIMG ---
CT ABDOMEN/PELVIS W/CONTRAST HISTORY: ro sbo TECHNIQUE: CT ABDOMEN/PELVIS W/CONTRAST Omnipaque contrast was used. Oral contrast was not given. Coronal and sagittal reformats were obtained. CT was performed with one or more of the following dose reduction techniques: Automated exposure control, adjustment of the mA and/or kV according to the patient's size, or use of the iterative reconstruction technique. Comparison: 02/28/2024 FINDINGS: No pulmonary consolidation or pleural effusion is seen. Liver and gallbladder are within normal limits. The spleen, pancreas, and adrenal glands are within normal limits. No hydronephrosis. The urinary bladder is partially distended. Reproductive organs are grossly within normal limits for patient's age. Fluid-filled loops of small bowel and colon suggesting enterocolitis in the proper clinical setting. Scattered diverticulosis coli without evidence of acute diverticulitis. No bowel obstruction is seen. Appendix is not clearly visualized limiting evaluation. Correlate clinically. Degenerative changes of the spine. Visualized aorta is normal in caliber. IMPRESSION: Fluid-filled loops of small bowel and colon suggesting enterocolitis in the proper clinical setting. Scattered diverticulosis coli without evidence of acute diverticulitis. No bowel obstruction is seen.
[2024-02-28] MEDS: morPHINE 4 MG SYG IVP ONE ×2 (21:53→22:17)
[2024-02-28] MEDS ORDERED: AMOX-427 PO (22:10)
--- NOTE | 2024-02-28 22:12 | ERN ---
ED Note History of Present Illness Stated Complaint: SEVERE ABD PAIN,N/V Chief Complaint: Abdominal Pain Time Seen by MD: 19:09 Allergies: Coded Allergies: No Known Drug Allergies (Verified Allergy, Unknown, 02/16/16) Home Meds Active Scripts Lactulose (Lactulose) 10 Gram Packet, 1 PACKET PO DAILY for 7 Days, #7 PACKET 0 Refills Prov:VIN ELLIOTT DO 02/28/24 Dicyclomine HCl (Bentyl) 20 Mg Tab, 1 TAB PO QID for irritable bowel symptoms for 30 Days, #120 TAB 0 Refills Prov:VIN ELLIOTT DO 02/28/24 Amoxicillin/Potassium Clav (Augmentin 875-125 Tablet) 1 Each Tablet, 1 EACH PO BID, #15 TAB Prov:WILFREDO ZIMMERMAN MD 04/02/16 Reported Medications [Promethazine] No Conflict Check 04/01/16 Metformin HCl (Metformin HCl) 500 Mg Tablet, 500 MG PO DAILY, TAB 04/01/16 Tramadol Hcl (Tramadol HCl) 50 Mg Tablet, 50 MG PO BID PRN for PAIN LEVEL 5 TO 10, TAB 04/01/16 Lorazepam (Ativan) 2 Mg Tablet, 2 MG PO TID PRN for ANXIETY/AGITATION, TAB 04/01/16 Past Medical History Dictation 38-year-old female with past medical history appendectomy, small-bowel obstruction, sections presents with worsening abdominal pain times several days in duration. The patient was seen here in the emergency department and discharged home with abdominal pain that was controlled with morphine. Patient returns today with worsening pain. Patient denies nausea, vomiting. Patient reporting inability to pass gas decreased bowel movements. Past Medical History: Diverticulosis, Other Additional Past Medical Hx: IBS, DUMPING SYNDROME Surgical History: Appendectomy, Review of System Dictation See HPI Initial Vital Sign VS Vital Signs Date Time Temp Pulse Resp B/P (MAP) Pulse Ox O2 Delivery O2 Flow Rate FiO2 02/28/24 17:07 98.6 108 16 120/77 98 Room Air 02/28/24 18:50 0 21 Physical Exam Dictation Chronically ill-appearing, acutely with codeine, abdomen diffusely tender, abdomen non peritoneal, abdomen nondistended, regular heart rate and rhythm, no murmurs rubs or gallops Results (Laboratory/Radiology) Laboratory/Radiology Laboratory Tests Test 02/28/24 17:18 02/28/24 19:56 White Blood Count 10.4 K/uL (4.8-10.8) Red Blood Count 3.81 MIL/uL (4.00-5.50) L Hemoglobin 10.6 g/dL (12.0-16.0) L Hematocrit 32.4 % (36-48) L Mean Corpuscular Volume 85.0 fL (79-99) Mean Corpuscular Hemoglobin 27.8 pg (27.0-33.0) Mean Corpuscular Hemoglobin Concent 32.7 g/dL (32.0-36.0) Red Cell Distribution Width 13.9 % (11.0-15.5) Platelet Count 380 K/uL (130-400) Mean Platelet Volume 8.4 fL (7.5-10.5) Immature Granulocyte % (Auto) 0.3 % (0-1) Neutrophils (%) (Auto) 66.0 % (40.0-77.0) Lymphocytes (%) (Auto) 26.6 % (21.0-51.0) Monocytes (%) (Auto) 6.1 % (3.0-13.0) Eosinophils (%) (Auto) 0.6 % (0.0-8.0) Basophils (%) (Auto) 0.4 % (0.0-5.0) Neutrophils # (Auto) 6.8 K/uL (1.8-7.7) Lymphocytes # (Auto) 2.8 K/uL (1.0-4.8) Monocytes # (Auto) 0.6 K/uL (0.1-1.0) Eosinophils # (Auto) 0.06 K/uL (0.00-0.70) Basophils # (Auto) 0.04 K/uL (0.00-0.20) Absolute Immature Granulocyte (auto 0.03 K/uL (0-1) Nucleated Red Blood Cells 0.0 % (0.0-0.19) Sodium Level 140 mmol/L (136-145) Potassium Level 4.0 mmol/L (3.5-5.1) Chloride Level 106 mmol/L (101-111) Carbon Dioxide Level 25 mmol/L (21-32) Blood Urea Nitrogen 9 mg/dL (7-18) Creatinine 0.6 mg/dL (0.5-1.0) Glomerular Filtration Rate Calc 118 mL/min (>90) Random Glucose 140 mg/dL (70-105) H Total Calcium 8.9 mg/dL (8.5-10.1) Total Bilirubin 0.3 mg/dL (0.2-1.0) # Aspartate Amino Transf (AST/SGOT) 12 U/L (10-37) Alanine Aminotransferase (ALT/SGPT) 15 U/L (12-78) Alkaline Phosphatase 53 U/L (50-136) Total Creatine Kinase 41 U/L (21-232) # Troponin I High Sensitivity < 4 ng/L (4-50) L Total Protein 6.9 g/dL (6.0-8.3) Albumin 3.4 g/dL (3.5-5.0) L Lipase 78 U/L (16-77) H Human Chorionic Gonadotropin, Quant 0 mIU/mL (0-5) Urine Color LIGHT-YELLOW (YELLOW) Urine Appearance CLEAR (CLEAR) Urine pH 5.5 (5.0-8.0) Urine Specific [place] 1.027 (1.001-1.031) Urine Protein NEGATIVE mg/dL (NEGATIVE) Urine Glucose (UA) NEGATIVE mg/dL (NEGATIVE) Urine Ketones NEGATIVE mg/dL (NEGATIVE) Urine Occult Blood NEGATIVE (NEGATIVE) Urine Nitrate NEGATIVE (NEGATIVE) Urine Bilirubin NEGATIVE mg/dL (NEGATIVE) Urine Urobilinogen 0.2 mg/dL (0.2-1.0) Urine Leukocyte Esterase NEGATIVE Matti/uL Urine RBC 0-1 /HPF (0-1) Urine WBC 0-1 /HPF (0-1) Urine Squamous Epithelial Cells RARE /HPF (0-2) Urine Bacteria RARE /HPF (None Seen) Urine HCG, Qualitative NEGATIVE (NEGATIVE) Urine Opiates Screen POSITIVE (NEGATIVE) H Urine Barbiturates Screen NEGATIVE (NEGATIVE) Urine Phencyclidine Screen NEGATIVE (NEGATIVE) Urine Amphetamines Screen NEGATIVE (NEGATIVE) Urine Benzodiazepines Screen POSITIVE (NEGATIVE) H Urine Cocaine Screen NEGATIVE (NEGATIVE) Urine Marijuana (THC) Screen NEGATIVE (NEGATIVE) ED Course ED Course Orders Procedure Category Date Status Time Cbc With Differential LAB 02/28/24 Complete 17:10 Comprehensive LAB 02/28/24 Complete Metabolic Panel 17:10 Troponin I High LAB 02/28/24 Complete Sensitivity 17:10 Hcg,Quantitative LAB 02/28/24 Complete 17:10 ,Urine Test LAB 02/28/24 Complete 17:10 Urinalysis Profile LAB 02/28/24 Complete 17:10 12 Lead Ekg Tracing- EKG 02/28/24 Logged Technical 17:10 0.9%Nacl 1000ml (Ns PHA 02/28/24 Complete 1000ml) 17:30 Ondansetron 4mg Inj PHA 02/28/24 Complete (Zofran 4mg Inj) 17:30 Pantoprazole 40mg Inj PHA 02/28/24 Complete (Protonix 40mg Inj 17:30 Creatine Kinase, Total LAB 02/28/24 Complete 17:10 Lipase LAB 02/28/24 Complete 17:10 Drug Screen Urine LAB 02/28/24 Complete 17:10 Morphine 4mg Syg PHA 02/28/24 In Process (Morphine 4mg Syg) 20:30 Ondansetron 4mg Inj PHA 02/28/24 Complete (Zofran 4mg Inj) 20:30 Ct Abdomen/Pelvis CT 02/28/24 Resulted W/Contrast 20:51 Iohexol (Omnipaque) PHA 02/28/24 Complete 20:57 Morphine 4mg Syg PHA 02/28/24 Complete (Morphine 4mg Syg) 21:30 Morphine 4mg Syg PHA 02/28/24 Transmitted (Morphine 4mg Syg) 22:30 Current Medications Medications (Trade) Dose Ordered Sig/Scar Route PRN Reason Start Time Stop Time Status Last Admin Dose Admin Iohexol (Omnipaque) 35,000 mg STK-MED ONCE IV 02/28/24 20:57 02/28/24 20:58 DC Morphine Sulfate (morPHINE 4MG SYG) 4 mg ONCE ONCE IVP 02/28/24 21:30 02/28/24 21:31 DC Morphine Sulfate (morPHINE 4MG SYG) 4 mg Q4H PRN IVP SEVERE PAIN (7-10) 02/28/24 20:30 03/06/24 20:29 02/28/24 21:29 Ondansetron HCl (zoFRAN 4MG INJ) 4 mg ONCE ONCE IVP 02/28/24 17:30 02/28/24 17:31 DC 02/28/24 20:04 Ondansetron HCl (zoFRAN 4MG INJ) 4 mg ONCE ONCE IVP 02/28/24 20:30 02/28/24 20:31 DC 02/28/24 20:21 Pantoprazole Sodium (PROTonix 40MG INJ) 40 mg ONCE ONCE IVP 02/28/24 17:30 02/28/24 17:31 DC 02/28/24 20:04 Sodium Chloride 1,000 ml @ 0 mls/hr ONCE ONCE IV 02/28/24 17:30 02/28/24 17:31 DC 02/28/24 10:00 Vital Signs Date Time Temp Pulse Resp B/P (MAP) Pulse Ox O2 Delivery O2 Flow Rate FiO2 02/28/24 20:12 98.6 108 18 120/75 98 Room Air* 0 21 02/28/24 18:50 98.4 99 20 118/69 98 Room Air* 0 21 02/28/24 17:07 98.6 108 16 120/77 98 Room Air Medical Decision Making MDM ddx: Small-bowel obstruction versus enteritis versus abdominal pain of uncertain etiology versus acute pancreatitis Labs from yesterday show no evidence of leukocytosis. Low clinical suspicion for acute bacterial infection. Repeat CT scan shows no evidence of small-bowel obstruction; however, there is evidence of enteritis. Patient given multiple doses of morphine Upon re-evaluation, patient's symptoms improved. Patient's abdomen remains non peritoneal. Discussed ED workup patient. Recommend close follow up to primary care physician as well as GI. We will give Augmentin for possible bacterial colitis. Return precautions given. Invited answered all questions prior to discharge DX & DISP Disposition: Discharge Departure Impression: Primary Impression: Enteritis Additional Impression: Pain, abdominal, unknown etiology Condition: Stable Scripts Amoxicillin/Potassium Clav (Augmentin Xr 1,000-62.5 Tab) 1,000 Mg-62.5 Mg Tab.er.12h 2 TAB PO BID for 10 Days, #40 TAB 0 Refills with food Prov: VIN ELLIOTT DO 02/28/24 Additional Instructions: Please follow up with GI doctor in next available appointment. Please return to emergency department immediately if you can not eat or drink, can not bowel movement, change in mental status, chest pain, nausea, vomiting, sweating, or if pain becomes unbearable. Please follow up primary care physician next available appointment.. Referrals: SELF,REFERRAL (PCP) Time of Disposition: 22:10 VIN ELLIOTT DO Feb 28, 2024 22:11
--- NOTE | 2024-02-29 06:07 | EKG ---
[facility] Test Date: 2024-02-28 Test Time: 19:48:58 Pat Name: GILLES WATSON Department: ED Room: Gender: F [employer]: [id number] : 1985 Requested By: LUCIANA BYERS Order Number: [id number] Reading MD: Vishal Jack Measurements Intervals [place] Rate: 77 P: 21 TN: 132 QRS: 3 QRSD: 94 T: 10 QT: 360 QTc: 407 Interpretive Statements Sinus rhythm Compared to ECG 11/27/2017 23:08:44 No significant changes Electronically Signed On 02-29-2024 14:08:58 [employer] by Vishal Jack Please click the below link to view image of tracing.
== END 2024-02-28 22:25 | disposition home or self-care (01) ==
LOC: EDH 16:31
DX: K52.9 Noninfective gastroenteritis and colitis, unspecified (principal); R10.9 Unspecified abdominal pain; Z79.84 Long term (current) use of oral hypoglycemic drugs; Z90.49 Acquired absence of other specified parts of digestive tract
CPT/HCPCS: 99284; 74177; 96374; 96375; 96361; 82550; 84484; 80053; 80305; 84702; 83690; 85025; 81025; 36415; 96376; 93005; 81001; J7030; J2405 ×2; J2270 ×3; J2470; Q9967; 96365

== ENCOUNTER 2024-08-18 21:03 | Emergency (ER) | payer BC ==
[~2024-08-18] VITALS: Ht 157.5 cm; Wt 85.7 kg
[~2024-08-18 21:03] MED LIST changes: +AMOX-426 PO; -AMOX-429 PO; -DICY20TA2 PO; +FERR324T4 PO; +FOLI1 PO; -LACT10PA5 PO; -LORA2TAB80 PO; -METF-444 PO; +METR-172 PO; +ONDA-104 PO; +PANT40TA54 PO; -PROMETHAZINE; +SERT-440 PO; -TRAM50TA4 PO
[2024-08-18 21:23] VITALS: BP 124/88; PULSE 76; RESP 18; TEMP 98.6; O2SAT 98
[2024-08-18] MEDS: HYDROcodone/APAP 5/325 1 TAB TABLET PO ONE (21:34)
[2024-08-18] MEDS: CLINDAMYCIN 150 MG CAP PO ONE (21:34)
--- NOTE | 2024-08-18 21:34 | ERN ---
ED Note History of Present Illness Stated Complaint: C/O PAIN TO FACE AND EYES Chief Complaint: Eye Problems Time Seen by MD: 21:06 Time Seen by Midlevel: 21:06 Dictation: The patient is a 39-year-old female with a history of RA, tachycardic, IBS who p resents to the emergency department with complaints of swelling and pain to eyelid onset Sunday. Patient reports that since pain has radiated to the right side of the face. Denies any trauma, denies any fevers, denies any drainage. Patient denies any foreign body sensation. Patient reports he was seen by her doctor today who referred her to Ophthalmology they gave her shot of antibiotic was not able to get a hold of Ophthalmology. Allergies: Coded Allergies: No Known Drug Allergies (Verified Allergy, Unknown, 02/16/16) Home Meds Active Scripts Ferrous Sulfate (Ferrous Sulfate) 324 Mg (65 Mg Iron) Tablet.dr, 325 MG PO DAILY for 30 Days, #30 TAB 1 Refill Prov:SHELLEY STOCK MD 05/17/24 Pantoprazole Sodium (Pantoprazole Sodium) 40 Mg Tablet., 1 TAB PO DAILY for 10 Days, #10 TAB 0 Refills Prov:SHIELA DWYER MD 04/23/24 Ondansetron HCl (Ondansetron HCl) 4 Mg Tablet, 1 TAB PO Q4HPRN PRN for nausea /vomiting for 3 Days, #18 TAB 0 Refills Prov:SHIELA DWYER MD 04/23/24 Amoxicillin/Potassium Clav (Augmentin 500-125 Tablet) 500 Mg-125 Mg Tablet, 1 TAB PO BID for 4 Days, #8 TAB 0 Refills Prov:SHIELA DWYER MD 04/23/24 Metronidazole (Metronidazole) 500 Mg Tablet, 1 TAB PO BID for 4 Days, #8 TAB 0 Refills Prov:SHIELA DWYER MD 04/23/24 Reported Medications Sertraline HCl (Sertraline HCl) 100 Mg Tablet, 100 MG PO DAILY 04/23/24 Folic Acid (Folvite) 1 Mg Tab, 1 MG PO DAILY 04/23/24 Past Medical History Past Medical History: Diabetes-Type II, High Cholesterol, Other Additional Past Medical Hx: HX OF TACHYCARDIA, HX OF PERIORBITAL CELLULITIS Surgical History: Appendectomy, LMP: Aug 18, 2024 RN Note Reviewed/Agreed w/PFSH: Yes Review of System Dictation Constitutional: Negative for fever,chills, and weight loss Eyes: Negative for injury, redness, and discharge positive for bilateral eye pa in, swelling to left eyelid ENT: Negative for injury,pain or swelling Cardiovascular: Negative for chest pain, palpitations, and edema Respiratory: Negative for shortness of breath, cough, and wheezing, Abdomen/GI: Negative for abdominal pain, nausea, vomiting, diarrhea, and constipation Back: Negative for injury and pain : Negative for injury, bleeding and discharge MS/Extremity: Negative for injury and deformity Skin: Negative for rash, and discoloration Neuro: Negative for headache, weakness, numbness, tingling, and seizure Psych: Negative for suicide ideation, homicidal ideation, and hallucinations Initial Vital Sign VS Vital Signs Date Time Temp Pulse Resp B/P (MAP) Pulse Ox O2 Delivery O2 Flow Rate FiO2 08/18/24 21:04 98.6 92 20 123/90 98 Room Air 08/18/24 21:23 0 21 Physical Exam Dictation Vital Signs reviewed General Appearance: Alert, oriented x 3, no acute distress, well developed, nourished. Head and Face: non-traumatic. Eyes: PERRL, pink conjunctivas, eyelid no trauma, left eyelid with mild swelling, no erythema or drainage, ocular motor intact, anterior chamber with arcus senilis. Ears: Pinnas intact and no signs of trauma or erythema ear canals clear and no discharge TM no erythema Nose: No discharge, no bleeding. Oropharynx: Mouth normal, tongue pink. pharynx clear,no erythema, tonsils no exudates, no abscesses noted, mucous membrane moist Neck: Supple, non-tender, no thyromegaly, no masses, no JVD, no bruits Breast:Deferred Chest:No tenderness, no crepitus, no paradoxical movement, no retractions Lungs:Clear, well-ventilated, symmetric, no rales, no wheezing, no rhonchi, no stridor, good breath sounds bilaterally Heart: Regular rate, regular rhythm, no murmur, no gallops Vascular: no peripheral edema, Abdomen: Soft, positive bowel sounds, nondistended, no guarding, nontender, no rebound, no masses no hepatomegaly, no splenomegaly, no Silva's sign, no hernias. Rectal: Deferred Genital: Deferred Neurological: Normal speech, motor function intact, sensory function intact Musculoskeletal: Neck nontender, full range of motion, back nontender, full range of motion, Extremities: nontender, full range of motion Skin: Color pink, dry, no turgor, no rash, no lacerations, no abrasions, no contusions. Lymphatic: Deferred Results (Laboratory/Radiology) Laboratory/Radiology Laboratory Tests Test 08/18/24 21:32 White Blood Count 7.4 K/uL (4.8-10.8) Red Blood Count 4.12 MIL/uL (4.00-5.50) Hemoglobin 11.1 g/dL (12.0-16.0) L Hematocrit 33.7 % (36-48) L Mean Corpuscular Volume 81.8 fL (79-99) Mean Corpuscular Hemoglobin 26.9 pg (27.0-33.0) L Mean Corpuscular Hemoglobin Concent 32.9 g/dL (32.0-36.0) Red Cell Distribution Width 13.3 % (11.0-15.5) Platelet Count 369 K/uL (130-400) Mean Platelet Volume 8.2 fL (7.5-10.5) Immature Granulocyte % (Auto) 0.4 % (0-1) Neutrophils (%) (Auto) 53.0 % (40.0-77.0) Lymphocytes (%) (Auto) 36.9 % (21.0-51.0) Monocytes (%) (Auto) 6.6 % (3.0-13.0) Eosinophils (%) (Auto) 2.6 % (0.0-8.0) Basophils (%) (Auto) 0.5 % (0.0-5.0) Neutrophils # (Auto) 3.9 K/uL (1.8-7.7) Lymphocytes # (Auto) 2.7 K/uL (1.0-4.8) Monocytes # (Auto) 0.5 K/uL (0.1-1.0) Eosinophils # (Auto) 0.19 K/uL (0.00-0.70) Basophils # (Auto) 0.04 K/uL (0.00-0.20) Absolute Immature Granulocyte (auto 0.03 K/uL (0-1) Nucleated Red Blood Cells 0.0 % (0.0-0.19) Sodium Level 136 mmol/L (136-145) Potassium Level 4.2 mmol/L (3.5-5.1) Chloride Level 100 mmol/L (101-111) L Carbon Dioxide Level 29 mmol/L (21-32) Blood Urea Nitrogen 12 mg/dL (7-18) Creatinine 0.4 mg/dL (0.5-1.0) L Glomerular Filtration Rate Calc 129 mL/min (>90) Random Glucose 165 mg/dL (70-105) H Total Calcium 9.2 mg/dL (8.5-10.1) Serum Test, Qualitative NEGATIVE (NEGATIVE) Labs Reviewed?: Yes ED Course ED Course Orders Procedure Category Date Status Time Cbc With Differential LAB 08/18/24 Complete 21:21 Basic Metabolic Panel LAB 08/18/24 Complete 21:21 Testing, LAB 08/18/24 Complete Serum Hcg 21:21 Clindamycin 150mg Cap PHA 08/18/24 Complete (Cleocin 150mg Cap 21:30 Hydrocodone/Apap PHA 08/18/24 Complete 5/325 ([place] 5/325mg) 21:30 Current Medications Medications (Trade) Dose Ordered Sig/Scar Route PRN Reason Start Time Stop Time Status Last Admin Dose Admin Acetaminophen/ Hydrocodone Bitart (NORco 5/325MG) 1 tab ONCE ONCE PO 08/18/24 21:30 08/18/24 21:31 DC 08/18/24 21:34 Clindamycin HCl (Cleocin 150mg Cap) 600 mg ONCE ONCE PO 08/18/24 21:30 08/18/24 21:31 DC 08/18/24 21:34 Vital Signs Date Time Temp Pulse Resp B/P (MAP) Pulse Ox O2 Delivery O2 Flow Rate FiO2 08/18/24 21:23 98.6 76 18 124/88 98 Room Air* 0 21 08/18/24 21:04 98.6 92 20 123/90 98 Room Air Medical Decision Making MDM The patient is a 39-year-old female with a history of RA, tachycardic, IBS who presents to the emergency department with complaints of swelling and pain to eyelid onset Sunday. Patient reports that since pain has radiated to the right side of the face. Denies any trauma, denies any fevers, denies any drainage. Patient denies any foreign body sensation. Patient reports he was seen by her doctor today who referred her to Ophthalmology they gave her shot of antibiotic was not able to get a hold of Ophthalmology. BC showed no leukocytosis, mild normocytic anemia, chemistry showed mild hypochloremia, glucose of 165, negative hCG. Patient with no significant swelling to face or eyes. Patient able to fully open her eyes. Patient does have fake eyelashes was instructed to remove because that is what can be causing the discomfort in the swelling. Patient instructed to follow up with the Ophthalmology tomorrow morning. Patient in no acute distress, nontoxic ap pearance, stable vital signs. Differential diagnosis: Cellulitis, sepsis, blepharitis Need for hospitalization: Patient does not meet criteria for hospitalization. There are no social concerns with this patient. DX & DISP Disposition: Discharge Departure Impression: Primary Impression: Swelling of left eyelid Condition: Stable Scripts Clindamycin HCl (Clindamycin HCl) 300 Mg Capsule 1 CAP PO QID for 10 Days, #40 CAP 0 Refills Prov: JOHN TURNER 08/18/24 Additional Instructions: Please follow up with Ophthalmology tomorrow morning. [facility] [place] [address] [phone] Your labs were unremarkable. Avoid any makeup to face and any eyelashes because this can worsen your symptoms. If anything worsen please return to ER. FOLLOW-UP WITH PRIMARY CARE PROVIDER IN 1 TO 2 DAYS. TAKE MEDICATIONS DIRECTED HERE IN THE EMERGENCY ROOM. OKAY TO CONTINUE HOME MEDICATIONS UNLESS OTHERWISE DISCUSSED DURING YOUR VISIT IN THE EMERGENCY ROOM TODAY. RETURN TO YOUR NEAREST EMERGENCY ROOM IF SYMPTOMS WORSEN OR IF THERE IS NO IMPROVEMENT. CALL 911 IF YOU NEED IMMEDIATE ASSISTANCE. TAKE TYLENOL OR MOTRIN [id number] NEEDED AND IF NO CONTRAINDICATIONS ARE PRESENT. INCREASE ORAL HYDRATION. A WOUND CULTURE OR URINE CULTURE WAS ORDERED HERE IN THE EMERGENCY ROOM DEPARTMENT PLEASE FOLLOW-UP WITH PRIMARY CARE PROVIDER AND ADVISE THEM TO GET REPEAT PORTS FROM OUR FACILITY. IF YOU HAD ANY CHRISTAL WRAP/SPLINTS THAT WERE APPLIED HERE, PLEASE DO NOT REMOVE THEM UNTIL YOU SEE YOUR PRIMARY CARE OR SPECIALTY. Referrals: SERVANDO REEDER (PCP) Time of Disposition: 22:08 I have reviewed the case, and I agree with, Diagnosis and Plan JOHN TURNER Aug 18, 2024 21:34
[2024-08-18 21:42] LABS: BASOPHILS # (AUTO) 0.04 K/uL (0.00-0.20); BASOPHILS % (AUTO) 0.5 % (0.0-5.0); EOSINOPHILS # (AUTO) 0.19 K/uL (0.00-0.70); EOSINOPHILS % (AUTO) 2.6 % (0.0-8.0); HEMATOCRIT 33.7 % (36-48); IMMATURE GRANULOCYTE ABSOLUTE 0.03 K/uL (0-1); LYMPHOCYTES # (AUTO) 2.7 K/uL (1.0-4.8); LYMPHOCYTES % (AUTO) 36.9 % (21.0-51.0); MEAN CORPUSCULAR HEMOGLOBIN 26.9 pg (27.0-33.0); MEAN CORPUSCULAR HGB CONC 32.9 g/dL (32.0-36.0); MEAN CORPUSCULAR VOLUME 81.8 fL (79-99); MONOCYTES # (AUTO) 0.5 K/uL (0.1-1.0); MONOCYTES % (AUTO) 6.6 % (3.0-13.0); NEUTROPHILS # (AUTO) 3.9 K/uL (1.8-7.7); PLATELET COUNT (AUTO) 369 K/uL (130-400); RED BLOOD CELL COUNT(AUTO) 4.12 MIL/uL (4.00-5.50); RED CELL DISTRIBUTION WIDTH 13.3 % (11.0-15.5); WHITE BLOOD COUNT (AUTO) 7.4 K/uL (4.8-10.8)
[2024-08-18 21:49] LABS: CREATININE 0.4 mg/dL (0.5-1.0); POTASSIUM 4.2 mmol/L (3.5-5.1)
[2024-08-18] MEDS ORDERED: CLIN-141 PO (22:11)
== END 2024-08-18 22:26 | disposition home or self-care (01) ==
LOC: EDH 21:03
DX: H02.846 Edema of left eye, unspecified eyelid (principal); E11.9 Type 2 diabetes mellitus without complications; E78.00 Pure hypercholesterolemia, unspecified; Z79.899 Other long term (current) drug therapy; Z90.49 Acquired absence of other specified parts of digestive tract
CPT/HCPCS: 36415; 80048; 84703; 85025; 99283

== ENCOUNTER 2025-02-17 10:47 | Emergency (ER) | payer BC ==
[~2025-02-17] VITALS: Ht 157.5 cm; Wt 83.5 kg
[~2025-02-17 10:47] MED LIST changes: +CLIN-141 PO
[2025-02-17 11:15] LABS: IMMATURE GRANULOCYTE ABSOLUTE 0.03 K/uL (0-1); NUCLEATED RED BLOOD CELLS 0.0 % (0.0-0.19); PLATELET COUNT (AUTO) 389 K/uL (130-400); RED BLOOD CELL COUNT(AUTO) 4.65 MIL/uL (4.00-5.50); RED CELL DISTRIBUTION WIDTH 14.6 % (11.0-15.5); WHITE BLOOD COUNT (AUTO) 7.1 K/uL (4.8-10.8)
[2025-02-17 11:22] LABS: CREATININE 0.5 mg/dL (0.5-1.0); GLOMERULAR FILTR. RATE CALC 122.0 mL/min (>90); GLUCOSE,RANDOM 152.0 mg/dL (70-105); SODIUM SERUM 136.0 mmol/L (136-145); UREA NITROGEN, BLOOD 15.0 mg/dL (7-18)
[2025-02-17 11:27] LABS: ASPARTATE AMINOTRANSFERASE 18.0 U/L (10-37); TOTAL PROTEIN, SERUM 7.5 g/dL (6.0-8.3)
[2025-02-17] MEDS: 0.9%NACL 1000ML 1,000 ML IV ONE (11:40)
[2025-02-17 11:56] LABS: APPEARANCE,URINE CLEAR (CLEAR); GLUCOSE, URINE (UA) NEGATIVE (NEGATIVE); LEUKOCYTE ESTERASE ,URINE NEGATIVE Leu/uL (NEGATIVE); NITRATE,URINE NEGATIVE (NEGATIVE); OCCULT BLOOD,URINE +- (TRACE) (NEGATIVE)
[2025-02-17 12:04] LABS: AMPHET/METH SCREEN,URINE NEGATIVE (NEGATIVE); BARBITURATE SCREEN, URINE NEGATIVE (NEGATIVE); CANNABINOID SCREEN,URINE NEGATIVE (NEGATIVE); COCAINE SCREEN,URINE NEGATIVE (NEGATIVE)
[2025-02-17 12:06] LABS: ADD UA MICROSCOPIC YES; HCG,QUALITATIVE URINE NEGATIVE (NEGATIVE)
[2025-02-17 12:07] LABS: SQUAMOUS EPITHELIAL CELL,UR MOD /HPF (0-2)
[2025-02-17] MEDS: LIDOCAINE HCL 2% VISCOUS 15 ML UDCUP PO ONE (12:16)
[2025-02-17] MEDS: MAG/ALUM/SIMETH 30 ML UDCUP PO ONE (12:16)
--- NOTE | 2025-02-17 12:16 | NUR ---
PT REFUSED GI COCKTAIL STATING SHE WOULD THROW IT UP.
--- NOTE | 2025-02-17 12:17 | ERN ---
General Chief Complaint: Abdominal Pain Stated Complaint: ABDOMINAL PAIN Time Seen by MD: 10:49 Source: patient History of Present Illness Initial Comments Patient is a 39-year-old female coming in complaining acute on chronic pain is localized to the lower abdominal region. She states that this has been ongoing for several years. She states that she has had multiple ER visits but has not followed up with a linotype mechanic. He does has a history of peptic ulcer. Allergies: Coded Allergies: No Known Drug Allergies (Verified Allergy, Unknown, 02/16/16) Home Meds Active Scripts Clindamycin HCl (Clindamycin HCl) 300 Mg Capsule, 1 CAP PO QID for 10 Days, #40 CAP 0 Refills Prov:JOHN TURNER [employer] 08/18/24 Ferrous Sulfate (Ferrous Sulfate) 324 Mg (65 Mg Iron) Tablet.dr, 325 MG PO DAILY for 30 Days, #30 TAB 1 Refill Prov:SHELLEY STOCK MD 05/17/24 Pantoprazole Sodium (Pantoprazole Sodium) 40 Mg Tablet.dr, 1 TAB PO DAILY for 10 Days, #10 TAB 0 Refills Prov:SHIELA DWYER MD 04/23/24 Ondansetron HCl (Ondansetron HCl) 4 Mg Tablet, 1 TAB PO Q4HPRN PRN for nausea/vomiting for 3 Days, #18 TAB 0 Refills Prov:SHIELA DWYER MD 04/23/24 Amoxicillin/Potassium Clav (Augmentin 500-125 Tablet) 500 Mg-125 Mg Tablet, 1 TAB PO BID for 4 Days, #8 TAB 0 Refills Prov:SHIELA DWYER MD 04/23/24 Metronidazole (Metronidazole) 500 Mg Tablet, 1 TAB PO BID for 4 Days, #8 TAB 0 Refills Prov:SHIELA DWYER MD 04/23/24 Reported Medications Sertraline HCl (Sertraline HCl) 100 Mg Tablet, 100 MG PO DAILY 04/23/24 Folic Acid (Folvite) 1 Mg Tab, 1 MG PO DAILY 04/23/24 Past Medical History Past Medical History: Diabetes-Type II, Diverticulitis, Diverticulosis, High Cholesterol, Other Medical History Other: HX OF TACHYCARDIA, HX OF PERIORBITAL CELLULITIS, H.PYLORI,DUMPING SYNDROM, Past Surgical History: Appendectomy, Female( History) LMP: Feb 11, 2025 ROS Dictation CONSTITUTIONAL: No chills, no fever, no weakness, no diaphoresis, no malaise. HEAD/FACE: No signs of trauma. EENT: No eye pain, no blurred vision, no tearing, no double vision, no ear pain, no ear discharge, no nose pain, no nasal congestion, no throat pain, no throat swelling, no mouth pain. RESPIRATORY: No cough, no orthopnea, no SOB, no stridor, no wheezing. CARDIOVASCULAR: No chest pain, no edema, no palpitations, no syncope. GASTROINTESTINAL/ABDOMINAL: abdominal pain, no constipation, no diarrhea, no nausea, no vomiting. GENITOURINARY: No abnormal discharge, no dysuria, no frequent urination, no hematuria. No complaints of pain in the genitals. MUSCULOSKELETAL: No back pain, no gout, no joint pain, no joint swelling, no muscle pain, no muscle stiffness, no neck pain. INTEGUMENTARY: No change in color, no change in hair/nails, no dryness, no lesion, no lumps, no rash. NEUROLOGICAL/PSYCH: No anxiety, not depressed, no emotional problem, no headache, no numbness, no pre-existing deficit, no history of seizures, no tremors, no weakness. HEMATOLOGIC/LYMPHATIC: Not anemic, no history of blood clots, no apparent bleeding, no bruising, glands not swollen. All Systems Negative, Except as Noted. Physical Exam Physical Exam Dictation VITAL SIGNS: Reviewed. GENERAL APPEARANCE: Alert, oriented x3, no acute distress, obese. HEAD AND FACE: Non-traumatic. EYES: PERRL, pink conjunctivas, eyelid no trauma, anterior chamber clear. EARS: Pinnas intact and no signs of trauma or erythema. Ear canals clear and no discharge. TMs no erythema. NOSE: No discharge, no bleeding. OROPHARYNX: Mouth normal, teeth no caries, tongue pink. Pharynx clear, no erythema. Tonsils no exudates, no abscesses noted. Mucous membrane moist. NECK: Supple, non-tender, no thyromegaly, no masses, no JVD, no bruits. BREAST: Deferred. CHEST: No tenderness, no crepitus, no paradoxical movement, no retractions. LUNGS: Clear, well-ventilated, symmetric, no rales, no wheezing, no rhonchi, no stridor, good breath sounds bilaterally. HEART: Regular rate, regular rhythm, no murmur, no gallops. VASCULAR: No peripheral edema. ABDOMEN: Soft, positive bowel sounds, nondistended, no guarding, lower abdominal tender, no rebound, no masses no hepatomegaly, no splenomegaly, no Silva's sign, no hernias. RECTAL: Deferred. GENITAL: Deferred. NEUROLOGICAL: Normal speech, gross motor function intact, gross sensory function intact. MUSCULOSKELETAL: Neck nontender, full range of motion, back nontender, full range of motion. EXTREMITIES: Nontender, full range of motion. SKIN: Color pink, dry, no turgor, no rash, no lacerations, no abrasions, no contusions. LYMPHATICS: Deferred. Results Laboratory and Microbiology Lab and Micro Result Laboratory Tests Test 02/17/25 11:07 02/17/25 11:46 White Blood Count 7.1 K/uL (4.8-10.8) Red Blood Count 4.65 MIL/uL (4.00-5.50) Hemoglobin 12.5 g/dL (12.0-16.0) Hematocrit 38.9 % (36-48) Mean Corpuscular Volume 83.7 fL (79-99) Mean Corpuscular Hemoglobin 26.9 pg (27.0-33.0) L Mean Corpuscular Hemoglobin Concent 32.1 g/dL (32.0-36.0) Red Cell Distribution Width 14.6 % (11.0-15.5) Platelet Count 389 K/uL (130-400) Mean Platelet Volume 8.2 fL (7.5-10.5) Immature Granulocyte % (Auto) 0.4 % (0-1) Neutrophils (%) (Auto) 56.5 % (40.0-77.0) Lymphocytes (%) (Auto) 35.8 % (21.0-51.0) Monocytes (%) (Auto) 5.5 % (3.0-13.0) Eosinophils (%) (Auto) 1.1 % (0.0-8.0) Basophils (%) (Auto) 0.7 % (0.0-5.0) Neutrophils # (Auto) 4.0 K/uL (1.8-7.7) Lymphocytes # (Auto) 2.6 K/uL (1.0-4.8) Monocytes # (Auto) 0.4 K/uL (0.1-1.0) Eosinophils # (Auto) 0.08 K/uL (0.00-0.70) Basophils # (Auto) 0.05 K/uL (0.00-0.20) Absolute Immature Granulocyte (auto 0.03 K/uL (0-1) Nucleated Red Blood Cells 0.0 % (0.0-0.19) Sodium Level 136 mmol/L (136-145) Potassium Level 4.3 mmol/L (3.5-5.1) Chloride Level 103 mmol/L (101-111) Carbon Dioxide Level 25 mmol/L (21-32) Blood Urea Nitrogen 15 mg/dL (7-18) Creatinine 0.5 mg/dL (0.5-1.0) Glomerular Filtration Rate Calc 122 mL/min (>90) Random Glucose 152 mg/dL (70-105) H Total Calcium 9.3 mg/dL (8.5-10.1) Total Bilirubin 0.4 mg/dL (0.2-1.0) Aspartate Amino Transf (AST/SGOT) 18 U/L (10-37) Alanine Aminotransferase (ALT/SGPT) 25 U/L (12-78) Alkaline Phosphatase 61 U/L (50-136) Total Protein 7.5 g/dL (6.0-8.3) Albumin 3.9 g/dL (3.5-5.0) Lipase 26 U/L (16-77) Urine Color LIGHT-YELLOW (YELLOW) Urine Appearance CLEAR (CLEAR) Urine pH 6.0 (5.0-8.0) Urine Specific [place] 1.021 (1.001-1.031) Urine Protein NEGATIVE mg/dL (NEGATIVE) Urine Glucose (UA) NEGATIVE mg/dL (NEGATIVE) Urine Ketones 5 mg/dL (NEGATIVE) H Urine Occult Blood +- (TRACE) (NEGATIVE) H Urine Nitrate NEGATIVE (NEGATIVE) Urine Bilirubin NEGATIVE mg/dL (NEGATIVE) Urine Urobilinogen 0.2 mg/dL (0.2-1.0) Urine Leukocyte Esterase NEGATIVE Matti/uL Urine RBC 0-1 /HPF (0-1) Urine WBC 0-1 /HPF (0-1) Urine Squamous Epithelial Cells MOD /HPF (0-2) Urine Bacteria RARE /HPF (None Seen) Urine HCG, Qualitative NEGATIVE (NEGATIVE) Urine Opiates Screen POSITIVE (NEGATIVE) H Urine Barbiturates Screen NEGATIVE (NEGATIVE) Urine Phencyclidine Screen NEGATIVE (NEGATIVE) Urine Amphetamines Screen NEGATIVE (NEGATIVE) Urine Benzodiazepines Screen NEGATIVE (NEGATIVE) Urine Cocaine Screen NEGATIVE (NEGATIVE) Urine Marijuana (THC) Screen NEGATIVE (NEGATIVE) Labs Reviewed?: Yes MDM MDM: Differential diagnosis: Abdominal pain, chronic abdominal pain, gastritis, GERD, history of peptic ulcer disease, Rationale: Tests considered and ordered secondary to shared decision making include: Previous outside records reviewed: Old ER visits. Risk of complication and/or morbidity or mortality of patient management: None Medications-Per medication reconciliation Need for hospitalization: Patient does not meet criteria for hospitalization. Need for emergency major/minor surgery: No Patient is a 39-year-old complaining of abdominal discomfort. Patient does has a history of peptic ulcer disease. Laboratory workup did not disclose any acute findings. Patient has been taking hydrocodone chronically for pain. I did educate patient on hydrocodone avoidance as the seen cause constipation. Patient will be referred to linotype mechanic for ongoing evaluation of chronic abdominal pain. ED Course Orders Procedure Category Date Status Time Cbc With Differential LAB 02/17/25 Complete 10:51 Comprehensive LAB 02/17/25 Complete Metabolic Panel 10:51 ,Urine Test LAB 02/17/25 Complete 10:51 Urinalysis Profile LAB 02/17/25 Complete 10:51 0.9%Nacl 1000ml (Ns PHA 02/17/25 Complete 1000ml) 11:00 Ondansetron 4mg Inj PHA 02/17/25 Complete (Zofran 4mg Inj) 11:00 Pantoprazole 40mg Inj PHA 02/17/25 Complete (Protonix 40mg Inj 11:00 Lipase LAB 02/17/25 Complete 10:51 Drug Screen Urine LAB 02/17/25 Complete 10:58 Lidocaine Hcl 2% PHA 02/17/25 In Process Viscous (Lidocaine Hcl 12:30 Mag/Alum/Simeth 30ml PHA 02/17/25 In Process (Maalox Plus 30ml) 12:30 Current Medications Medications (Trade) Dose Ordered Sig/Scar Route PRN Reason Start Time Stop Time Status Last Admin Dose Admin Al Hydroxide/Mg Hydroxide (MAALox PLUS 30ML) 30 ml ONCE ONCE PO 02/17/25 12:30 02/17/25 12:31 Lidocaine HCl (Lidocaine HCl 2% Viscous) 10 ml ONCE ONCE PO 02/17/25 12:30 02/17/25 12:31 Ondansetron HCl (zoFRAN 4MG INJ) 4 mg ONCE ONCE IVP 02/17/25 11:00 02/17/25 11:01 DC 02/17/25 11:40 Pantoprazole Sodium (PROTonix 40MG INJ) 40 mg ONCE ONCE IVP 02/17/25 11:00 02/17/25 11:01 DC 02/17/25 11:40 Sodium Chloride 1,000 ml @ 0 mls/hr ONCE ONCE IV 02/17/25 11:00 02/17/25 11:01 DC 02/17/25 11:40 Vital Signs Date Time Temp Pulse Resp B/P (MAP) Pulse Ox O2 Delivery O2 Flow Rate FiO2 02/17/25 11:53 99.3 109 20 89/60 97 Room Air* 0 21 02/17/25 10:48 98.4 99 20 124/80 99 Room Air DX & DISP Disposition: Discharge Departure Impression: Primary Impression: Chronic abdominal pain Condition: Stable Additional Instructions: FOLLOW-UP WITH PRIMARY CARE PROVIDER IN 1 TO 2 DAYS. TAKE MEDICATIONS DIRECTED HERE IN THE EMERGENCY ROOM. OKAY TO CONTINUE HOME MEDICATIONS UNLESS OTHERWISE DISCUSSED DURING YOUR VISIT IN THE EMERGENCY ROOM TODAY. RETURN TO YOUR NEAREST EMERGENCY ROOM IF SYMPTOMS WORSEN OR IF THERE IS NO IMPROVEMENT. CALL 911 IF YOU NEED IMMEDIATE ASSISTANCE. TAKE TYLENOL [id number] NEEDED AND IF NO CONTRAINDICATIONS ARE PRESENT. INCREASE ORAL HYDRATION. A WOUND CULTURE OR URINE CULTURE WAS ORDERED HERE IN THE EMERGENCY ROOM DEPARTMENT PLEASE FOLLOW-UP WITH PRIMARY CARE PROVIDER AND ADVISE THEM TO GET REPORTS FROM OUR FACILITY. IF YOU HAD ANY CHRISTAL WRAP/SPLINTS THAT WERE APPLIED HERE, PLEASE DO NOT REMOVE THEM UNTIL YOU SEE YOUR PRIMARY CARE OR SPECIALTY. Referrals: Referrals: SERVANDO REEDER (PCP) EVELYN CONNORS MD Time of Disposition: 12:16 LUCIANA BYERS MD Feb 17, 2025 12:17
--- NOTE | 2025-02-17 13:48 | HMCIMG ---
EXAM: CT Abdomen and Pelvis Without IV contrast CLINICAL HISTORY: abdominal pain TECHNIQUE: Axial computed tomography images of the abdomen and pelvis without intravenous contrast. CONTRAST: No IV contrast. COMPARISON: None provided. FINDINGS: LUNG BASES: Minimal right pleural effusion. The left pleural space is clear. LIVER: Unremarkable. No focal lesion. GALLBLADDER AND BILE DUCTS: The gallbladder appears within normal limits. No radioopaque gallstones are seen. No biliary ductal dilatation is evident. PANCREAS: Unremarkable. SPLEEN: Unremarkable. ADRENAL GLANDS: Unremarkable. KIDNEYS, URETERS, AND BLADDER: Bilateral non-specific perinephric fat stranding. There is no hydronephrosis or hydroureter. No urinary calculi are seen. STOMACH AND BOWEL: Diverticulosis along the ascending and transverse colon with no features of diverticulitis. Unremarkable appearance of the stomach and the rest of the bowel. No evidence of bowel obstruction. No evidence suggesting enteritis or colitis. APPENDIX: No evidence of acute appendicitis on CT examination. PERITONEUM: No free fluid. No free air. LYMPH NODES: No lymphadenopathy is evident. REPRODUCTIVE: Unremarkable as visualized. VASCULATURE: No evidence of abdominal aortic aneurysm. BONES: No aggressive appearing osseous lesion. No acute osseous pathology is evident. Mild multilevel degenerative changes in the form of marginal osteophytes in lower thoracic and upper lumbar vertebrae. MISCELLANEOUS: Elevation of the right hemidiaphragm. Multiple tiny phleboliths in the pelvis. IMPRESSION: 1. No acute intra-abdominal or pelvic pathology. 2. Minimal right pleural effusion. 3. Bilateral non-specific perinephric fat stranding. 4. Colonic diverticulosis with no features of diverticulitis. /Lawn
[2025-02-17 14:07] VITALS: BP 133/80; PULSE 103; RESP 20; TEMP 99.3; O2SAT 98
== END 2025-02-17 14:11 | disposition home or self-care (01) ==
LOC: EDH 10:47
DX: G89.29 Other chronic pain (principal); R10.30 Lower abdominal pain, unspecified; E11.9 Type 2 diabetes mellitus without complications; E78.00 Pure hypercholesterolemia, unspecified; Z79.899 Other long term (current) drug therapy; Z87.11 Personal history of peptic ulcer disease; Z86.19 Personal history of other infectious and parasitic diseases; Z90.49 Acquired absence of other specified parts of digestive tract
CPT/HCPCS: 99284; 74176; 96374; 96361; 96375; 80053; 80305; 83690; 85025; 81025; 36415; 81001; 96372; J1885; J2405; J7030; J2470